=== PATIENT | female | born 2000 | race Caucasian/White ===

== ENCOUNTER 2018-11-15 01:53 | Emergency (ER) | payer OTHER ==
[2018-11-15 02:15] LABS: #Basophils 0.1 thou/uL (0.0-0.2); #Eosinphils 0.4 thou/uL (0.0-0.7); #Lymphocytes 2.5 thou/uL (1.20-3.40); #Monocytes 0.8 thou/uL (0.11-0.59); #Neutrophils 5.6 thou/uL (1.40-6.50); %Basophils 0.8 % (0.0-1.0); %Eosinophils 3.9 % (0.0-10.0); %Lymphocytes 26.5 % (28.0-48.0); %Neutrophils 59.8 % (31.0-61.0); Hemoglobin 11.7 g/dL (12.0-16.0); Mean Corpuscular HGB CONC 34.6 g/dL (32.0-36.0); Mean Corpuscular Hemoglobin 30.2 pg (25.0-35.0); Mean Corpuscular Volume 87.3 fL (78.0-98.0); Mean Platelet Volume 7.2 fL (7.4-10.4); Platelet Count 276 thou/uL (130-400); RBC Distribution Width 11.8 % (11.5-14.5); Red Blood Cell (RBC) Count 3.87 mill/uL (4.00-5.20); White Blood Cell (WBC) Count 9.3 thou/uL (4.8-10.8)
[2018-11-15] MEDS ORDERED: Acetaminophen 500 MG TAB ONE (03:03)
[2018-11-15 03:23] LABS: Bilirubin Negative (Negative); Blood, Urine 2+ (Negative); Clarity Clear (Clear); Glucose, Urine (Dipstick) Normal (Negative); Leukocyte Negative Leu/uL (Negative); Nitrite Negative (Negative); Protein, Urine (Dipstick) Negative (Neg-Trace); RBC/HPF 0-3 HPF (0-3); Urobilinogen Normal mg/dL (Less than 2); WBC/HPF 0-3 HPF (0-3)
== END 2018-11-15 04:18 | disposition home or self-care (01) ==
LOC: ERS 01:53
DX: O20.9 Hemorrhage in early pregnancy, unspecified (principal); Z87.891 Personal history of nicotine dependence; Z3A.17 17 weeks gestation of pregnancy
CPT/HCPCS: 36415; 81003; 81015; 84702; 85025; 86850; 86900; 86901

== ENCOUNTER 2018-11-15 21:05 | Emergency (ER) | payer OTHER ==
--- NOTE | 2018-11-15 23:30 | ULT ---
Limited obstetrical ultrasound: 11/15/2018 COMPARISON: None HISTORY: female with abdominal pain TECHNIQUE: Multiplanar grayscale sonographic imaging of the gravid uterus obtained. FINDINGS: heart rate is 157 bpm. presentation is vertex. Limited assessment of the spine is unremarkable. Four-chamber heart view is suboptimal. kidneys, urinary bladder, and umbilical cord appear unremarkable. Umbilical cord insertion is within normal limits. The placenta is located posteriorly, demonstrating no evidence for previa or abruption. The placenta is low-lying, approximately 1.6 cm posterior to the internal cervical os. Cervical length is approximately 3.7 cm. anatomy is not fully assessed on this exam. biometry: BPD 4.0 cm 18 weeks 1 day Head circumference 14.6 cm 17 weeks 5 days Abdominal circumference 12.3 cm 18 weeks 0 days Femur length 2.3 cm 16 weeks 6 days Average age based on ultrasound is 17 weeks 5 days. Estimated date of delivery is 04/20/2019. Estimated weight is 197 g +/- 29 g IMPRESSION: Single live intrauterine gestation as detailed above. No acute findings. anatomy is not fully assessed on this exam.
[2018-11-15 23:35] LABS: #Eosinphils 0.4 thou/uL (0.0-0.7); #Monocytes 0.8 thou/uL (0.11-0.59); #Neutrophils 5.4 thou/uL (1.40-6.50); %Basophils 0.5 % (0.0-1.0); %Eosinophils 4.8 % (0.0-10.0); %Lymphocytes 22.8 % (28.0-48.0); %Monocytes 9.2 % (0.0-4.0); %Neutrophils 62.8 % (31.0-61.0); Hemoglobin 11.5 g/dL (12.0-16.0); Mean Corpuscular HGB CONC 34.9 g/dL (32.0-36.0); Mean Corpuscular Hemoglobin 30.6 pg (25.0-35.0); Mean Corpuscular Volume 87.6 fL (78.0-98.0); Platelet Count 264 thou/uL (130-400); RBC Distribution Width 11.9 % (11.5-14.5); Red Blood Cell (RBC) Count 3.75 mill/uL (4.00-5.20); White Blood Cell (WBC) Count 8.6 thou/uL (4.8-10.8)
[2018-11-15 23:46] LABS: Bacteria/HPF None Seen HPF (None Seen); Bilirubin Negative (Negative); Blood, Urine 1+ (Negative); Clarity Clear (Clear); Glucose, Urine (Dipstick) Normal (Negative); Leukocyte 25 Leu/uL (Negative); Nitrite Negative (Negative); Protein, Urine (Dipstick) 10 mg/dL (Neg-Trace); Squamous Epithelial 0-3 HPF (0-3); Urobilinogen Normal mg/dL (Less than 2); WBC/HPF 0-3 HPF (0-3)
== END 2018-11-15 23:52 | disposition home or self-care (01) ==
LOC: ERS 21:05
DX: O44.52 Low lying placenta with hemorrhage, second trimester (principal); Z3A.17 17 weeks gestation of pregnancy; Z87.891 Personal history of nicotine dependence
CPT/HCPCS: 36415; 76815; 81003; 81015; 84702; 85025; 86850; 86900; 86901; 87086

== ENCOUNTER 2018-11-24 19:17 | Day surgery (SDC) | payer OTHER ==
[2018-11-24 19:46] VITALS: BMI 28.0
[2018-11-24 19:51] VITALS: BP 110/64; TEMP 98.6
--- NOTE | 2018-11-24 20:04 | PRG ---
DATE OF SERVICE: 11/24/2018 TIME OF SERVICE: 1935 hours. PRESENTING COMPLAINT: Vaginal bleeding at 19 weeks. HISTORY OF PRESENT ILLNESS: Ms. Germain is a 18-year-old, G1, P0, who sees Dee Dee Parker at [facility]. Antepartum records were not available on the unit. The patient has a history of multiple presentations to the emergency room for vaginal bleeding as well as evaluation at [facility] for the same over the past 2 weeks. Ultrasound has revealed a marginal posterior placenta previa that is resolving with a probable small subchorionic hemorrhage at the edge. The patient reports that she passed some clots this afternoon with no cramps. No rupture of membranes. She does not feel movement. OB-GIVING OFFICER HISTORY: Antepartum record not on the unit. No previous significant OB-GIVING OFFICER history. The patient's blood type is O positive, antibody negative. PAST MEDICAL HISTORY: Denies. PAST SURGICAL HISTORY: Denies. ALLERGIES: DENIES. MEDICATIONS: vitamins. SOCIAL HISTORY: Past tobacco use. Denies any . FAMILY HISTORY: Noncontributory. REVIEW OF SYSTEMS: Noncontributory. PHYSICAL EXAMINATION: GENERAL: White female, resting comfortably. No apparent distress. HEENT: Within normal limits. LUNGS: Clear to auscultation bilaterally. HEART: Regular rate and rhythm. ABDOMEN: Soft, nontender. Fundal height 20. FHTs 150s. GENITALIA: Vulva without lesions. Vagina without significant discharge. A clot noted. Speculum exam revealed a cervix that is visually closed. There was a small amount of bloody mucus noted in the posterior cul-de-sac. Digital exam is deferred due to a history of previous ultrasounds with a marginal posterior previa. EXTREMITIES: Without clubbing, cyanosis, or edema. LABORATORY DATA: No laboratory performed. ULTRASOUND: No ultrasound performed tonight. Previous report on 11/15 at [place] revealed a low-lying posterior placenta, 1.6 cm from the internal os. Cervical length was 3.7 cm. The patient's verbal report on ultrasound at [facility] last week revealed a cervical length of 3.8 cm. IMPRESSION: Nineteen weeks' gestation with probable small subchorionic hemorrhage, clinically insignificant at this time with a low-lying posterior placenta. No evidence of labor. PLAN: Reassurance. Keep scheduled follow up. No need for a RhoGAM administration with Rh positive blood type. Job ID: [id number]
[2018-11-24] MEDS ORDERED: hydrALAZINE 20 MG/ML VIAL SLOW IVP PRN (21:26)
== END 2018-11-24 20:10 | disposition home or self-care (01) ==
LOC: L&D/OP 19:17
PROVIDERS: ATTEND Obstetrics & Gynecology
DX: O44.52 Low lying placenta with hemorrhage, second trimester (principal); Z3A.19 19 weeks gestation of pregnancy

== ENCOUNTER 2018-12-07 09:20 | Inpatient (IN) | payer OTHER ==
[2018-12-07] MEDS ORDERED: hydrALAZINE 20 MG/ML VIAL SLOW IVP PRN (09:56)
--- NOTE | 2018-12-07 10:17 | PDOC.LDHP ---
Labor and Delivery H&P Chief complaint: contractions, other (passing clots) HPI: 18 yo G1 at ~20 wks here for "passing clots" for past 2 weeks with abd cramping. Worsened recently after passing large amount of blood. Denies TAD, medical hx, no recent infxn. States she had a placenta previa early in but U/S Current gestational age (weeks): 20 (20.6) Due date: 04/20/19 Dating criteria: other (unknown) Grav: 1 Current complications: none Current medications: pre- vitamins Allergies/Adverse Reactions: Allergies Allergy/AdvReac Type Severity Reaction Status Date / Time No Known Allergies Allergy Verified 11/24/18 19:49 Social history: none - Physical Exam Vital signs reviewed and normal: yes General: NAD, resting Heart: RRR Lungs: CTAB Abdomen: gravid Extremeties: no edema - OB Labs Blood type: unknown RH: unknown Antibody Screen: unknown HIV: unknown RPR: unknown HEPSAg: unknown 1 hour GCT: unknown GBS: unknown - Plan Plan: observation in L&D -: 1. VB in sIUP at 20.6 weeks -TVUS to check for previa -maternal vital signs stable, type & cross two units, 2 peripheral IVs, valente -IV access, fluids -CBC, CMP, Coags -VP3/GCC -Speculum exam showing blood in vaginal vault, cervix visually closed and thickened -Non viable fetus at this point, discussed with patient she could be having early loss. -Gestation too early for steroids Discussed with Dr. Vázquez Addendum - Attending - Attending Attestation Date/Time: 12/07/18 1223 I personally evaluated the patient and discussed the management with Dr. Infante. 18 yo WF at 20 6/7 weeks with h/o placenta previa reportedly resolved, c/o bleeding and cramping. Will obtain USG, labs and start MgSo4 for now. I agree with the History, Examination, Assessment and Plan documented above.
[2018-12-07] MEDS: Lactated Ringer's 1,000 ML IV SCH (10:20)
[2018-12-07 10:37] LABS: #Eosinphils 0.3 thou/uL (0.0-0.7); #Lymphocytes 1.6 thou/uL (1.20-3.40); %Basophils 0.2 % (0.0-1.0); %Eosinophils 2.1 % (0.0-10.0); %Lymphocytes 10.4 % (28.0-48.0); %Neutrophils 80.4 % (31.0-61.0); Hemoglobin 10.9 g/dL (12.0-16.0); Mean Corpuscular HGB CONC 35.9 g/dL (32.0-36.0); Mean Corpuscular Hemoglobin 30.7 pg (25.0-35.0); Mean Corpuscular Volume 85.5 fL (78.0-98.0); Mean Platelet Volume 7.5 fL (7.4-10.4); Platelet Count 271 thou/uL (130-400); RBC Distribution Width 11.5 % (11.5-14.5); Red Blood Cell (RBC) Count 3.55 mill/uL (4.00-5.20); White Blood Cell (WBC) Count 14.9 thou/uL (4.8-10.8)
--- NOTE | 2018-12-07 10:47 | PDOC.EVN ---
Event Note - Event Note Event Note: Transabdominal U/S showing no previa, fundal subchorionic hemorrhage. Pt with cramping. Will admit patient for expectant management. GA too early to be considered for IM steroids since <23 WGA. Will consult tiera to discuss pre- viability. Discussed with patient who indicated understanding Addendum - Attending - Attending Attestation Date/Time: 12/07/18 1221 I personally evaluated the patient and discussed the management with Dr. Infante. Will observe closely with serial H/H's. I agree with the History, Examination, Assessment and Plan documented above.
--- NOTE | 2018-12-07 10:59 | ULT ---
Obstetric sonogram Limited HISTORY: Second trimester gestation. Pelvic bleeding. FINDINGS: Single intrauterine gestation in cephalic presentation. The placenta is predominantly amy l, with large lobes extending along the anterior and posterior uterus. At the upper anterior margin, an oval heterogeneous fluid collection between the myometrium and the placenta is 4.0 cm marsha th by 1.5 cm depth. No evidence of placenta previa. Amniotic fluid is within normal limits. Heart motion documented at 162 bpm. IMPRESSION: No evidence of placenta previa. Small area of placental abruption along the upper anterior portion of the predominately fundal placen ta. Findings were relayed to Dr. Vázquez by the sonographic technologist at the time of the exam.
[2018-12-07] MEDS: Butorphanol Tartrate 1 MG/ML VIAL ONE ×2 (11:25→13:38)
[2018-12-07] MEDS ORDERED: Magnesium Sulfate 20 gm/500 ml 20 GM/500 ML BAG ONE (12:42)
[2018-12-07 12:44] LABS: ALT (SGPT) 15 U/L (8-55); AST (SGOT) 30 U/L (5-34); Albumin 3.7 g/dL (3.5-5.0); Alkaline Phosphatase 99 U/L (40-100); Anion Gap 16 mmol/L (10-20); BUN (Urea Nitrogen) 4 mg/dL (7.0-18.7); Bilirubin, Total 0.4 mg/dL (0.2-1.2); Calc. Creatinine Clearance 0 mL/min (70-130); Calcium 8.9 mg/dL (7.8-10.44); Carbon Dioxide 20 mmol/L (22-29); Chloride 104 mmol/L (98-107); Estimated GFR-MDRD Greater than 90; Globulin 3.5 g/dL (2.4-3.5); Glucose 67 mg/dL (70-105); Potassium 4.6 mmol/L (3.5-5.1); Protein, Total 7.2 g/dL (6.0-8.3); Sodium 135 mmol/L (136-145)
[2018-12-07] MEDS ORDERED: Promethazine HCl 25 MG/ML VIAL IM PRN (12:56)
[2018-12-07] MEDS ORDERED: Ondansetron PF 4 MG/2 ML Vial IVP PRN (12:56)
[2018-12-07] MEDS ORDERED: Acetaminophen 500 MG TAB PO PRN (12:56)
[2018-12-07] MEDS ORDERED: Magnesium Sulfate 20 GM/WATER 500 ML BAG IVPB SCH (13:00)
[2018-12-07] MEDS ORDERED: Calcium Gluc 4.6 MEQ/10 ML (100 MG/ML) SLOW IVP PRN (13:07)
[2018-12-07] MEDS ORDERED: Magnesium Sulfate 20 gm/500 ml 20 GM/500 ML BAG IVPB SCH (13:15)
[2018-12-07] MEDS ORDERED: Magnesium Sulfate 20 gm/500 ml 2 GM/50 ML BAG IVPB SCH (13:30)
[2018-12-07] MEDS ORDERED: Butorphanol Tartrate 1 MG/ML VIAL ONE (13:33)
[2018-12-07 14:51] LABS: PTT 28.4 SEC (22.9-36.1); Prothrombin Time 13.4 SEC (12.0-14.7)
[2018-12-07] MEDS: Butorphanol Tartrate 1 MG/ML VIAL SLOW IVP PRN ×2 (14:58→21:20)
[2018-12-07 16:22] VITALS: BMI 27.1
[2018-12-07 18:14] LABS: Hemoglobin 10.5 g/dL (12.0-16.0); Mean Corpuscular HGB CONC 33.1 g/dL (32.0-36.0); Mean Corpuscular Hemoglobin 29.8 pg (25.0-35.0); Mean Platelet Volume 7.3 fL (7.4-10.4); Platelet Count 298 thou/uL (130-400); RBC Distribution Width 11.9 % (11.5-14.5); Red Blood Cell (RBC) Count 3.54 mill/uL (4.00-5.20); White Blood Cell (WBC) Count 19.8 thou/uL (4.8-10.8)
--- NOTE | 2018-12-08 00:18 | PDOC.EVN ---
Event Note - Event Note Event Note: 21 weeks today. Only small amt. of spotting this shift. sleeping now. VSS AF Hgb; 10.9 on admit, 10.5 at 6p. A/P; Suspect abruptio Cont. to OBs in hospital. DC Mg later today.
[2018-12-08 00:39] LABS: Hemoglobin 9.4 g/dL (12.0-16.0); Mean Corpuscular HGB CONC 35.2 g/dL (32.0-36.0); Mean Corpuscular Hemoglobin 30.7 pg (25.0-35.0); Mean Corpuscular Volume 87.4 fL (78.0-98.0); Mean Platelet Volume 6.9 fL (7.4-10.4); Platelet Count 307 thou/uL (130-400); RBC Distribution Width 11.8 % (11.5-14.5); Red Blood Cell (RBC) Count 3.06 mill/uL (4.00-5.20); White Blood Cell (WBC) Count 14.9 thou/uL (4.8-10.8)
[2018-12-08 06:27] LABS: Mean Corpuscular HGB CONC 35.5 g/dL (32.0-36.0); Mean Corpuscular Hemoglobin 30.5 pg (25.0-35.0); Mean Corpuscular Volume 85.9 fL (78.0-98.0); Platelet Count 294 thou/uL (130-400); RBC Distribution Width 11.7 % (11.5-14.5); Red Blood Cell (RBC) Count 2.93 mill/uL (4.00-5.20)
[2018-12-08] MEDS: Butorphanol Tartrate 1 MG/ML VIAL SLOW IVP PRN ×5 (10:10→17:48)
[2018-12-08] MEDS: Lactated Ringer's 1,000 ML IV SCH (14:52)
[2018-12-08] MEDS ORDERED: Ibuprofen 800 MG TAB PO PRN (18:48)
--- NOTE | 2018-12-08 19:01 | OP ---
DATE OF PROCEDURE: 12/08/2018 The patient is a 18-year-old female, admitted to the hospital at 21 weeks' gestation with vaginal bleeding and a diagnosis of chronic abruption. On ultrasound, the patient was noted to have a 4 x 1.5 cm collection below the edge of the fundal portion of the placenta. I was called to the room after the patient suddenly had an urge to push and deliver, and her baby was delivered en-caul into the bed. On my arrival, the baby was en-caul, intact placenta and bag and baby all delivered. The patient was having minimal bleeding. The bag was ruptured, and baby was delivered. Cord was clamped and cut. There was no pulse palpable in the cord at time of evaluation. There was a single agonal breath or movement. Fetus was wrapped in a blanket and handed to mother for comfort and grieving. There was total minimal blood loss of approximately 100 mL. Mother is stable in the room immediately after delivery. Job ID: [id number]
[2018-12-09] MEDS ORDERED: hydrALAZINE 20 MG/ML VIAL SLOW IVP PRN (01:41)
[2018-12-09] MEDS ORDERED: Bisacodyl 10 MG SUPP PR PRN (01:41)
[2018-12-09] MEDS ORDERED: Milk Of Magnesia 30 ML UDCUP PO PRN (01:41)
[2018-12-09] MEDS ORDERED: Ibuprofen 800 MG TAB PO SCH ×2 (01:45→13:00)
[2018-12-09] MEDS ORDERED: Docusate Calcium (SURFAK) 240 MG CAP PO SCH ×2 (01:45→09:00)
[2018-12-09 08:33] VITALS: BP 100/56; TEMP 98.4
[2018-12-09] MEDS ORDERED: Adacel (T-DAP) 0.5 ML SYRINGE IM ONE (09:00)
--- NOTE | 2018-12-09 13:49 | DIS ---
DATE OF ADMISSION: 12/07/2018 DATE OF DISCHARGE: 12/09/2018 ADMITTING DIAGNOSES: 1. Intrauterine at 21 weeks. 2. Placental abruption, chronic. 3. Vaginal bleeding. DISCHARGE DIAGNOSES: 1. Intrauterine at 21 weeks. 2. Placental abruption, chronic. 3. Vaginal bleeding. 4. Nonviable delivery of fetus resulting in . PROCEDURE: None. HOSPITAL COURSE: The patient is a 18-year-old, G1, P0, female with an intrauterine at about 20 to 21 weeks' gestation, who had been bleeding for the last 2 weeks. Evaluation here showed what looked like a marginal abruption at the fundal side of the placenta. The patient's bleeding significantly reduced over the first 24 to 48 hours of her stay. By end of the hospital day 2, the patient had only spotting. Unfortunately, the patient has sudden abdominal cramp and delivery of her baby en-caul. Her course otherwise has been uncomplicated. Today is day 1, her bleeding is much reduced. Her pain is improved. She has no fever and the patient has expressed interest in discharging home. PHYSICAL EXAMINATION: VITAL SIGNS: Blood pressure this morning is 105/62, temperature 98.8, pulse of 87, respiratory rate of 18, and saturating 98% on room air. GENERAL: She appears to be in no acute distress. She is alert and oriented, cooperative and pleasant to interact with. ABDOMEN: Soft. EXTREMITIES: Nontender, nonedematous. DISCHARGE INSTRUCTIONS: The patient is being discharged to home. She has instructions to follow up with Ms. Dee Dee Parker within the next week and instructions to seek medical attention should she experience fever, increasing pain, or bleeding. Job ID: [id number]
[2018-12-10 00:51] LABS: Chlamydia by PCR Not Detected (NotDetected); GC by PCR Not Detected (NotDetected)
== END 2018-12-09 10:05 | disposition home or self-care (01) | DRG 806 ==
LOC: L&D/OP 09:20 → L&D 12:14 → 3SW 12-09 01:54
PROVIDERS: ADMIT Obstetrics & Gynecology; ATTEND Obstetrics & Gynecology
PROC: 10E0XZZ Delivery of Products of Conception, External Approach (ICD-10-PCS; principal; 2018-12-08)
DX: O45.92 Premature separation of placenta, unspecified, second trimester (principal); O36.4XX0 Maternal care for intrauterine death, not applicable or unspecified; Z37.1 Single stillbirth; Z3A.20 20 weeks gestation of pregnancy
CPT/HCPCS: 36415; 51702; 76815; 80053; 85025; 85027; 85610; 85730; 86850; 86900; 86901; 87480; 87491; 87510; 87591; 87660; 99285; J0595; J2550; J3475

== ENCOUNTER 2020-01-08 12:11 | Day surgery (SDC) | payer OTHER ==
[2020-01-08 12:56] VITALS: BMI 35.6
[2020-01-08] MEDS ORDERED: FLU VACC QS2020-21(6MOS UP)/PF 60 MCG/0.5 ML SYRINGE IM ONE (13:15)
--- NOTE | 2020-01-08 14:27 | ULT ---
Exam: Nonstress biophysical profile HISTORY: Repeat nonstress biophysical profile is requested. TECHNIQUE: Nonstress biophysical profile was performed. FINDINGS: presentation: Cephalic heart tones: 144 bpm Amniotic fluid index: 9.8 cm Placenta: Anterior. No previa. Cervix: 3.2 cm. There does appear to be hypoechoic echotexture within the cervix suggesting possible fluid. Nonstress biophysical profile: tone 2 breathing 2 movements 2 Amniotic fluid 2 IMPRESSION: 1. Nonstress biophysical profile total score 8 out of 8 2. Cervix is 3.2 cm with small amount of fluid within the cervix. Transcribed Date/Time: 01/08/2020 2:28 PM
[2020-01-08 15:46] LABS: ALT (SGPT) 7 U/L (8-55); AST (SGOT) 19 U/L (5-34); Albumin 3.5 g/dL (3.5-5.0); Alkaline Phosphatase 174 U/L (40-110); Anion Gap 16 mmol/L (10-20); BUN (Urea Nitrogen) 5 mg/dL (7.0-18.7); Bilirubin, Total 0.9 mg/dL (0.2-1.2); Calc. Creatinine Clearance 170 mL/min (70-130); Calcium 8.9 mg/dL (7.8-10.44); Carbon Dioxide 20 mmol/L (22-29); Chloride 104 mmol/L (98-107); Estimated GFR-MDRD Greater than 90; Globulin 3.7 g/dL (2.4-3.5); Glucose 81 mg/dL (70-105); Potassium 3.8 mmol/L (3.5-5.1); Protein, Total 7.2 g/dL (6.0-8.3); Sodium 136 mmol/L (136-145)
[2020-01-08 15:56] LABS: Creatinine, Urine 45.75 mg/dL (47-110); Protein, Urine Random Quant Less than 10 mg/dL (1-14)
== END 2020-01-08 16:10 | disposition home or self-care (01) ==
LOC: L&D/OP 12:11
PROVIDERS: ATTEND Obstetrics & Gynecology
DX: Z01.89 Encounter for other specified special examinations (principal); Z3A.00 Weeks of gestation of pregnancy not specified
CPT/HCPCS: 36415; 76819; 80053; 82570; 84156

== ENCOUNTER 2020-01-15 11:08 | Outpatient (CLI) | payer OTHER ==
[2020-01-15 17:58] LABS: SARS-CoV-2 MS2 Positive; SARS-CoV-2 N Gene Negative; SARS-CoV-2 S Gene Negative; SARS-CoV-2 by NAA Not Detected (NotDetected); SARS-CoV-2 orf1ab Negative
== END 2020-01-15 11:09 | disposition home or self-care (01) ==
LOC: LABBT 11:08
PROVIDERS: ATTEND Obstetrics & Gynecology
DX: Z20.828 Contact with and (suspected) exposure to other viral communicable diseases (principal)
CPT/HCPCS: 87635; U0003

== ENCOUNTER 2020-01-19 19:13 | Inpatient (IN) | payer OTHER ==
[~2020-01-19 19:13] MED LIST: Bupivacaine/Epinephrine 0.25% 30 ML VIAL ONE
[2020-01-19 21:30] VITALS: BMI 36.6
[2020-01-20] MEDS ORDERED: Ondansetron PF 4 MG/2 ML Vial IVP PRN ×3 (00:36→23:17)
[2020-01-20] MEDS ORDERED: Methylergonovine 0.2 MG/ML VIAL IM PRN (00:36)
[2020-01-20] MEDS ORDERED: hydrALAZINE 20 MG/ML VIAL SLOW IVP PRN ×2 (00:36→23:17)
[2020-01-20] MEDS ORDERED: Misoprostol 200 MCG TAB PR PRN (00:36)
[2020-01-20] MEDS ORDERED: Promethazine HCl 25 MG/ML VIAL IM PRN ×3 (00:36→23:17)
[2020-01-20] MEDS ORDERED: Lidocaine 1% (PF) 30 ML VIAL SC PRN (00:36)
[2020-01-20] MEDS ORDERED: Ibuprofen 800 MG TAB PO PRN (00:36)
[2020-01-20] MEDS ORDERED: Diphenoxylate HCl/Atropine Tablet PO PRN ×2 (00:36)
[2020-01-20] MEDS ORDERED: Acetaminophen 500 MG TAB PO PRN (00:36)
[2020-01-20] MEDS ORDERED: Butorphanol Tartrate 1 MG/ML VIAL SLOW IVP PRN (00:36)
[2020-01-20] MEDS ORDERED: Zolpidem Tartrate 5 MG TAB PO PRN ×2 (00:36→23:17)
[2020-01-20] MEDS ORDERED: HYDROcodone/Acetaminophen 5/325 mg Tablet PO PRN ×4 (00:36→23:17)
[2020-01-20] MEDS ORDERED: Carboprost 250 MCG/ML AMP IM PRN (00:36)
[2020-01-20] MEDS ORDERED: NS w/ Oxytocin 10 units 500 ML IV SCH ×2 (00:45)
--- NOTE | 2020-01-20 00:45 | PDOC.LDHP ---
Labor and Delivery H&P HPI: 19 y/o at 38 weeks for term medical induction of labor for CHTN. Due date: 02/02/20 Grav: 2 Para: 0 Current complications: hypertension Abnormal US findings: No Current medications: pre-herbert vitamins Allergies/Adverse Reactions: Allergies Allergy/AdvReac Type Severity Reaction Status Date / Time No Known Allergies Allergy Verified 01/19/20 21:21 Social history: none - Physical Exam Vital signs reviewed and normal: yes General: NAD, resting Heart: RRR Lungs: CTAB Abdomen: gravid Extremeties: no edema FHT: category 1 - Assessment L&D Assessment: medically indicated induction - Plan Plan: admit to L&D, cervical ripening
[2020-01-20] MEDS: Lactated Ringer's 1,000 ML IV SCH ×3 (05:08→14:27)
[2020-01-20 05:31] LABS: Mean Corpuscular HGB CONC 31.7 g/dL (32.0-36.0); Mean Corpuscular Hemoglobin 23.3 pg (27.0-31.0); Mean Corpuscular Volume 73.5 fL (78.0-98.0); Mean Platelet Volume 9.3 fL (7.4-10.4); Platelet Count 276 thou/uL (130-400); RBC Distribution Width 16.9 % (11.5-14.5); White Blood Cell (WBC) Count 11.8 thou/uL (4.8-10.8)
[2020-01-20 06:09] LABS: HBSAg Index 0.25 S/CO (0-0.99); Hep B Surf Ag Non-Reactive S/CO (NonReactive)
[2020-01-20 06:44] LABS: Syphilis Antibody Nonreactive (Nonreactive); Syphilis Antibody Index 0.08 S/CO (<1.00 Non-Reactive)
[2020-01-20] MEDS: Fentanyl 4 mcg/Bup 0.1% Cadd 100 ML in Premix Bag 1 BAG EPIDURAL SCH ×2 (08:48→15:48)
[2020-01-20] MEDS ORDERED: Lactated Ringer's 500 ML IV PRN (08:57)
[2020-01-20] MEDS ORDERED: Naloxone HCl 0.4 mg/ml Vial IVP PRN ×2 (08:57)
[2020-01-20] MEDS ORDERED: ePHEDrine 50 MG/ML VIAL SLOW IVP PRN (08:57)
[2020-01-20] MEDS ORDERED: Acetaminophen 325 MG TAB PO PRN (08:57)
[2020-01-20] MEDS ORDERED: diphenhydrAMINE 50 MG/ML VIAL IVP PRN (08:57)
[2020-01-20] MEDS ORDERED: Communication Order-Pharmacy FS SCH (09:00)
[2020-01-20] MEDS ORDERED: Lidocaine 1% (PF) 30 ML VIAL ONE (17:15)
[2020-01-20] MEDS: NS / Oxytocin 40 units/1000ml 1,000 ML IV PRN ×2 (19:25→22:43)
[2020-01-20] MEDS ORDERED: Bisacodyl 10 MG SUPP PR PRN (23:17)
[2020-01-20] MEDS ORDERED: Preparation H Ointment 28 GM TUBE PR PRN (23:17)
[2020-01-20] MEDS ORDERED: Benzocaine-Menthol 82.5 ML CAN TOP PRN (23:17)
[2020-01-20] MEDS ORDERED: Misoprostol 200 MCG TAB VAG PRN (23:17)
[2020-01-20] MEDS ORDERED: Methylergonovine 0.2 MG TAB PO PRN (23:17)
[2020-01-20] MEDS ORDERED: diphenhydrAMINE 25 MG CAP PO PRN (23:17)
[2020-01-20] MEDS ORDERED: Milk Of Magnesia 30 ML UDCUP PO PRN (23:17)
[2020-01-20] MEDS ORDERED: NS / Oxytocin 40 units/1000ml 1,000 ML IV SCH (23:17)
[2020-01-20] MEDS ORDERED: Lanolin Ointment 7 GM TUBE TOP PRN (23:17)
[2020-01-20] MEDS ORDERED: Docusate Calcium (SURFAK) 240 MG CAP PO SCH (23:30)
[2020-01-20] MEDS ORDERED: Ibuprofen 800 MG TAB PO SCH (23:30)
[2020-01-21] MEDS: Ibuprofen 800 MG TAB PO SCH ×3 (06:16→21:39)
[2020-01-21 06:36] LABS: Hemoglobin 9.4 g/dL (12.0-16.0); Mean Corpuscular HGB CONC 31.6 g/dL (32.0-36.0); Mean Corpuscular Hemoglobin 23.6 pg (27.0-31.0); Mean Corpuscular Volume 74.7 fL (78.0-98.0); Mean Platelet Volume 8.7 fL (7.4-10.4); Platelet Count 222 thou/uL (130-400); RBC Distribution Width 16.8 % (11.5-14.5); Red Blood Cell (RBC) Count 3.99 mill/uL (4.20-5.40); White Blood Cell (WBC) Count 14.4 thou/uL (4.8-10.8)
[2020-01-21] MEDS: Ferrous Sulfate 325 MG TAB PO SCH ×2 (08:47→16:31)
[2020-01-21] MEDS: Prenatal Vitamin 1 TAB PO SCH (08:47)
[2020-01-21] MEDS: Docusate Calcium (SURFAK) 240 MG CAP PO SCH ×2 (08:47→21:40)
[2020-01-21] MEDS ORDERED: Adacel (T-DAP) 0.5 ML SYRINGE IM ONE (09:00)
[2020-01-21] MEDS ORDERED: Measles/Mumps/Rubella 10 MCG/0.5 ML VIAL SC ONE (09:00)
[2020-01-21] MEDS ORDERED: Varicella virus, LIVE 0.5 ML VIAL SC ONE (09:00)
--- NOTE | 2020-01-21 18:03 | DN ---
DATE OF PROCEDURE: 01/20/2020 TIME OF SERVICE: At [address] Central Standard Time. PREOPERATIVE DIAGNOSIS: Intrauterine at 38 weeks and 1 day with a term medical induction of labor for chronic hypertension. POSTOPERATIVE DIAGNOSIS: Intrauterine at 38 weeks and 1 day with a term medical induction of labor for chronic hypertension. PROCEDURE: Spontaneous vaginal delivery over first-degree laceration of the perineal/hymenal opening. FINDINGS: Viable female infant weighing 3030 g or 6 pounds 11 ounces, Apgars seven and nine. QUANTITATIVE BLOOD LOSS: 134 mL. COMPLICATIONS: None. PROCEDURE IN DETAIL: The patient presented to [facility] where she was admitted to the labor and delivery service. The patient underwent a normal and uneventful labor with normal cervical dilatation until she was found to be completely dilated. She was then allowed to push and was able to bring the baby down and delivered the baby in a vertex presentation without difficulties. Once the head delivered in occiput anterior position, the shoulders followed spontaneously along with the rest of the baby's body. Once out the baby's mouth and nose were bulb suctioned. The cord was clamped and cut and baby was handed to waiting attendants. Cord blood was collected. Gentle fundal massage was performed and the placenta delivered intact without problems. Hemostasis was assured. Quantitative blood loss was calculated. Inspection of the cervix, vaginal vault, and perineum did not reveal any lacerations needing suturing. Once again, hemostasis was within normal limits and the patient was allowed to recover in the labor and delivery room. Baby went to nursery. Job ID: [id number]
[2020-01-22] MEDS: Ibuprofen 800 MG TAB PO SCH (06:37)
[2020-01-22] MEDS: Ferrous Sulfate 325 MG TAB PO SCH (08:34)
[2020-01-22] MEDS: Docusate Calcium (SURFAK) 240 MG CAP PO SCH (08:34)
[2020-01-22] MEDS: Prenatal Vitamin 1 TAB PO SCH (08:34)
[2020-01-22 09:10] VITALS: BP 149/93; TEMP 98.5
--- NOTE | 2020-01-22 09:50 | PDOC.PP ---
Post Progress Note Post Day #: 1 PO intake tolerated: yes Flatus: yes Ambulation: yes Vital Signs (12 hours) Temp Pulse Resp BP Pulse Ox 01/22/20 07:20 98.5 F 75 18 149/93 H 98 01/22/20 06:00 98.2 F 66 18 142/80 H 01/22/20 00:00 98.0 F 65 17 131/81 01/21/20 23:17 98.1 F 61 18 130/81 Weight Weight 200 lb - Physical Examination General: NAD Cardiovascular: no m/r/g, RRR Respiratory: clear to auscultation bilaterally, non-labored breathing Abdominal: + bowel sounds, lochia, no distention Extremities: negative homans (B) Neurological: no gross focal deficits (DC to home tomorrow) Psychiatric: A&Ox3, normal affect Result Diagrams: 01/21/20 06:24 Additional Labs: Post Labs Hep Bs Antigen Non-Reactive S/CO (NonReactive) 01/20/20 05:19 Blood Type O POSITIVE 01/20/20 05:20
[2020-01-22] MEDS ORDERED: FLU VACC QS2020-21(6MOS UP)/PF 60 MCG/0.5 ML SYRINGE IM ONE (11:17)
== END 2020-01-22 12:35 | disposition home or self-care (01) | DRG 807 ==
LOC: L&D 19:13 → 3SW 01-20 22:48
PROVIDERS: ADMIT Obstetrics & Gynecology; ATTEND Obstetrics & Gynecology
PROC: 10E0XZZ Delivery of Products of Conception, External Approach (ICD-10-PCS; principal; 2020-01-20)
PROC: 3E033VJ Introduction of Other Hormone into Peripheral Vein, Percutaneous Approach (ICD-10-PCS; 2020-01-20)
PROC: 0HQ9XZZ Repair Perineum Skin, External Approach (ICD-10-PCS; 2020-01-20)
PROC: 10907ZC Drainage of Amniotic Fluid, Therapeutic from Products of Conception, Via Natural or Artificial Opening (ICD-10-PCS; 2020-01-20)
DX: O10.92 Unspecified pre-existing hypertension complicating childbirth (principal); Z37.0 Single live birth; Z3A.38 38 weeks gestation of pregnancy; O70.0 First degree perineal laceration during delivery
CPT/HCPCS: 36415; 51702; 85027; 86780; 86850; 86900; 86901; 87340; 90471; 90662; 90715; G0008; J0595; J2405; J2590